=== PATIENT | male | born 1945 | race Native Hawaiian/Other Pacific Islander ===

== ENCOUNTER 2020-06-23 09:04 | Outpatient (CLI) | payer BC ==
[2020-06-23 09:27] LABS: PLATELET COUNT 144 K/uL (142-355)
== END 2020-06-23 21:57 | disposition home or self-care (01) ==
LOC: LABW 09:04
PROVIDERS: ATTEND Nurse Practitioner Family
DX: J01.81 Other acute recurrent sinusitis (principal)
CPT/HCPCS: 36415; 85027; 87070

== ENCOUNTER 2020-06-24 08:50 | Outpatient (CLI) | payer BC ==
[2020-06-24 09:29] LABS: PLATELET COUNT 154 K/uL (142-355)
== END 2020-06-24 20:40 | disposition home or self-care (01) ==
LOC: LABW 08:50
PROVIDERS: ATTEND Nurse Practitioner Primary Care
DX: J01.91 Acute recurrent sinusitis, unspecified (principal)
CPT/HCPCS: 36415; 85027

== ENCOUNTER 2020-08-10 08:09 | Outpatient (CLI) | payer BC | END 2020-08-10 23:59 | disposition home or self-care (01) | LOC: US 08:09 | PROVIDERS: ATTEND Nurse Practitioner Family | DX: R74.01 Elevation of levels of liver transaminase levels (principal); J01.91 Acute recurrent sinusitis, unspecified ==

== ENCOUNTER 2022-02-16 09:02 | Outpatient (CLI) | payer OTHER | END 2022-02-16 19:14 | disposition home or self-care (01) | LOC: US 09:02 | PROVIDERS: ATTEND Nurse Practitioner Family | DX: K82.4 Cholesterolosis of gallbladder (principal) ==

== ENCOUNTER 2022-08-25 07:56 | Outpatient (CLI) | payer OTHER | END 2022-08-25 19:17 | disposition home or self-care (01) | LOC: CT 07:56 | PROVIDERS: ATTEND Nurse Practitioner Family | DX: Z77.090 Contact with and (suspected) exposure to asbestos (principal); R94.2 Abnormal results of pulmonary function studies ==